=== PATIENT | male | born 1995 | race African-American/Black ===

== ENCOUNTER 2021-12-24 03:16 | Emergency (ER) | payer MEDICAID ==
[~2021-12-24] VITALS: Ht 177.8 cm; Wt 82.0 kg
[~2021-12-24 03:16] MED LIST: FLONAS; LISD40CA; LORA10TA64
[2021-12-24] MEDS ORDERED: IBUPROFEN 600MG TABLET PO STA (04:47)
[2021-12-24 04:57] VITALS: BP 129/71
[2021-12-24] MEDS ORDERED: IBUP-2029 PO (05:34)
== END 2021-12-24 05:48 | disposition home or self-care (01) ==
LOC: ER 03:16
DX: M25.562 Pain in left knee (principal); M25.552 Pain in left hip
CPT/HCPCS: 73502; 73562; 99284